=== PATIENT | female | born 1985 | race Caucasian/White ===

== ENCOUNTER 2018-11-24 07:23 | Day surgery (SDC) | payer BC ==
[2018-11-20 17:17] VITALS: BMI 31.6
[2018-11-24] MEDS ORDERED: BUPIVACAINE HCL/PF 0.5% (5 MG/ML) 30 ML VIAL IJ ONE (09:23)
--- NOTE | 2018-11-24 10:47 | HP ---
History & Physical Update - History History: No Change - Physical Physical: No Change - Assessment Assessment: No Change - Plan Plan: No Change (Cervical cerclage)
--- NOTE | 2018-11-24 10:51 | OP ---
Operative Note - Note: Operative Date: 11/24/18 Pre-Operative Diagnosis: at EGA 13 wk, cervical incompetence. Operation: Castellanos cervical cerclage (knot is at 12:00) Findings: Normal closed cervix Pre-op US in OR showed a viable SIUP with normal FHR. Post-op US in OR showed a viable SIUP with normal FHR. Post-Operative Diagnosis: Same as Pre-op Surgeon: Leandro Garner Anesthesiologist/PRINTED [employer]ARD PCB DESIGNER: Mariann Toledo Anesthesia: Spinal Estimated Blood Loss (mls): 5 Drains & Tubes with Location: Straight cath bladder at end of procedure with 50ml of clear urine Drains, Volume Out (mls): 50 Blood Volume Replaced (mls): 0 Fluid Volume Replaced (mls): 250 Operative Report Dictated: Yes
--- NOTE | 2018-11-24 11:39 | OP ---
DATE OF OPERATION: 11/24/2018 PREOPERATIVE DIAGNOSIS: at estimated gestational age of 13 weeks, complicated by cervical incompetence 2nd trimester. POSTOPERATIVE DIAGNOSIS: at estimated gestational age of 13 weeks, complicated by cervical incompetence 2nd trimester. PROCEDURE: Castellanos cervical cerclage (knot is placed at 12 o'clock). SURGEON: Leandro Garner MD ANESTHESIOLOGIST: Mariann Toledo MD ANESTHESIA: Spinal. COMPLICATIONS: None. ESTIMATED BLOOD LOSS: Less than 5 mL. URINE OUTPUT: 50 mL of clear urine at the end of the procedure on straight catheter. INTRAVENOUS FLUIDS: 250 mL of crystalloid. COMPLICATIONS: None. PATHOLOGY: None. FINDINGS: Examination before surgery revealed a slightly enlarged gravid uterus consistent with approximately 13 weeks' gestation without pelvic or adnexal masses. The cervix was normal and closed. No vaginal bleeding was noted. The ultrasound prior to surgery showed a single intrauterine with normal heart rate present. Postoperative ultrasound was also performed and showed a single, live intrauterine with a normal heartbeat. Good hemostasis after surgery was noted. DESCRIPTION OF PROCEDURE: The patient was met preoperatively. Risks, benefits, alternatives of surgery were discussed at least. The consent form was reviewed and explained. The patient verbalized her understanding. The consent form was signed, and the patient requested to proceed with the surgery. The patient was brought to the OR with the IV running. She was placed on the surgical table in a sitting position. The spinal anesthesia was achieved without difficulty. The patient was then placed in a dorsal lithotomy position using adjustment [place] stirrups. She was examined under anesthesia with the findings as described above. A preoperative ultrasound was performed. A time-out was conducted as per standard protocol. The patient was then prepped and draped in the usual sterile fashion. A 5-mm Mersilene suture was then placed circumferentially around the cervix, and an uncomplicated Castellanos cervical cerclage was performed with good hemostasis. The suture was tied at 12 o'clock. Excellent results were noted. The patient was then returned to supine position. Sponge, lap, needles, and instruments counts were correct. A postoperative ultrasound was performed and showed a single, viable intrauterine with a normal heart rate. The patient was then transferred to recovery room in stable condition and awake. Filippo [id number]
[2018-11-24 12:03] VITALS: BP 113/69; PULSE 77; TEMP 98.2
[2018-11-24] MEDS ORDERED: ONDANSETRON 4 MG/2 ML VIAL IVPUSH PRN (12:12)
[2018-11-24] MEDS ORDERED: LACTATED RINGERS SOLUTION 1,000 ML IV SCH (12:15)
== END 2018-11-24 12:00 | disposition home or self-care (01) ==
LOC: JASU-SURG 07:23
PROVIDERS: ATTEND Obstetrics & Gynecology
PROC: 0UVC7ZZ Restriction of Cervix, Via Natural or Artificial Opening (ICD-10-PCS; principal; 2018-11-24 09:00)
DX: N88.3 Incompetence of cervix uteri (principal); O09.02 Supervision of pregnancy with history of infertility, second trimester; Z3A.13 13 weeks gestation of pregnancy
CPT/HCPCS: 86850; 86900; 86901; 94760